=== PATIENT | male | born 1965 | race Caucasian/White ===

== ENCOUNTER 2022-03-22 14:52 | Emergency (ER) | payer MEDICAID ==
[~2022-03-22] VITALS: Ht 188 cm; Wt 109.0 kg
[~2022-03-22 14:52] MED LIST: CYCL-1 PO
[2022-03-22 15:25] VITALS: BP 119/67
[2022-03-22 17:41] LABS: EOSINOPHILS # (AUTO) 0.2 X10'3 (0-0.9)
[2022-03-22 17:43] LABS: BASOPHILS # (AUTO) 0.1 X10'3 (0-0.2); BASOPHILS % (AUTO) 1.1 % (0-1); HEMATOCRIT 43.1 % (42.0-52.0); HEMOGLOBIN 14.2 g/dl (14.0-17.9); LYMPHOCYTES % (AUTO) 19.1 % (21-51); MEAN CORPUSCULAR HEMOGLOBIN 29.5 PG (27.0-31.0); MEAN CORPUSCULAR HGB CONC 32.9 g/dL (33.0-36.5); MEAN CORPUSCULAR VOLUME 89.7 FL (78-98); MEAN PLATELET VOLUME 7.9 FL (7.4-10.4); MONOCYTES # (AUTO) 1.5 X10'3 (0-0.9); NEUTROPHILS # (AUTO) 6.8 X10'3 (1.8-7.7); NEUTROPHILS % (AUTO) 63.8 % (42-75); PLATELET COUNT 249 X10'3 (140-440); RED BLOOD COUNT 4.81 X10'6 (4.70-6.10); RED CELL DISTRIBUTION WIDTH 13.3 % (11.5-14.5); WHITE BLOOD COUNT 10.6 X10'3 (4.5-11.0)
[2022-03-22 17:55] LABS: ALANINE AMINOTRANSFERASE 34 U/L (12-78); ALBUMIN 3.4 G/DL (3.4-5.0); ALBUMIN/GLOBULIN RATIO 0.7 (1.1-1.5); ALKALINE PHOSPHATASE 75 IU/L (46-116); ANION GAP 7 (8-16); ASPARTATE AMINO TRANSFERASE 34 U/L (10-37); BILIRUBIN,TOTAL 0.6 MG/DL (0.1-1.0); BLOOD UREA NITROGEN 18 MG/DL (7-18); BUN/CREATININE RATIO 18.9 (5.4-32.0); C-REACTIVE PROTEIN 7.24 MG/DL (0.0-0.5); CALCIUM 9.3 MG/DL (8.5-10.1); CHLORIDE 99 MMOL/L (99-107); CREATININE 0.95 MG/DL (0.60-1.10); GLUCOSE 101 MG/DL (70-104); SODIUM 138 MMOL/L (135-145); TOTAL CARBON DIOXIDE 31.7 MMOL/L (24-32); TOTAL PROTEIN 8.1 G/DL (6.4-8.2); eGFR 81 ML/MIN
[2022-03-22] MEDS ORDERED: IBUP-1984 PO (18:44)
[2022-03-22] MEDS ORDERED: PRED10TA23 PO (18:44)
[2022-03-22] MEDS ORDERED: ketorolac tromethamine 15mg/ml inj. IM ONE (18:45)
[2022-03-22] MEDS ORDERED: HYDROcodone/acetaminophen 10/325mg tab PO ONE (18:45)
== END 2022-03-22 19:15 | disposition home or self-care (01) ==
LOC: ER 14:53
DX: M10.9 Gout, unspecified (principal); M25.562 Pain in left knee; Z98.890 Other specified postprocedural states; Z72.89 Other problems related to lifestyle; Z79.899 Other long term (current) drug therapy; Z88.0 Allergy status to penicillin
CPT/HCPCS: 36415; 73564; 80053; 83605; 84145; 85025; 85651; 86140; 87040; 96372; 99284; J1885

== ENCOUNTER 2024-03-15 10:35 | Inpatient (IN) | payer MEDICAID ==
[~2024-03-15] VITALS: Ht 177.8 cm; Wt 74.0 kg
[2024-03-15 12:06] LABS: BASOPHILS # (AUTO) 0.1 X10'3 (0-0.2); EOSINOPHILS % (AUTO) 0.2 % (0-6); LYMPHOCYTES # (AUTO) 0.7 X10'3 (1.1-4.8); MEAN CORPUSCULAR HGB CONC 31.9 g/dL (33.0-36.5)
[2024-03-15 12:08] LABS: BASOPHILS % (AUTO) 0.4 % (0-1); HEMATOCRIT 32.2 % (42.0-52.0); HEMOGLOBIN 10.3 g/dl (14.0-17.9); LYMPHOCYTES % (AUTO) 5.5 % (21-51); MEAN CORPUSCULAR HEMOGLOBIN 24.8 PG (27.0-31.0); MEAN CORPUSCULAR VOLUME 77.8 FL (78-98); MEAN PLATELET VOLUME 7.6 FL (7.4-10.4); MONOCYTES % (AUTO) 8.2 % (2-12); NEUTROPHILS # (AUTO) 10.6 X10'3 (1.8-7.7); NEUTROPHILS % (AUTO) 85.7 % (42-75); PLATELET COUNT 374 X10'3 (140-440); RED BLOOD COUNT 4.14 X10'6 (4.70-6.10); RED CELL DISTRIBUTION WIDTH 16.6 % (11.5-14.5); WHITE BLOOD COUNT 12.4 X10'3 (4.5-11.0)
[2024-03-15] MEDS: normal saline 1000ML IV soln IV ONE (12:08)
[2024-03-15 12:18] LABS: ALANINE AMINOTRANSFERASE 23 U/L (12-78); ALBUMIN 1.8 G/DL (3.4-5.0); ALBUMIN/GLOBULIN RATIO 0.3 (1.1-1.5); ALKALINE PHOSPHATASE 84 IU/L (46-116); ANION GAP 5 (8-16); ASPARTATE AMINO TRANSFERASE 36 U/L (10-37); BILIRUBIN,DIRECT 0.1 MG/DL (0-0.3); BILIRUBIN,TOTAL 0.2 MG/DL (0.1-1.0); BLOOD UREA NITROGEN 17 MG/DL (7-18); BUN/CREATININE RATIO 20.2 (10.0-20.0); CALCIUM 8.1 MG/DL (8.5-10.1); CHLORIDE 98 MMOL/L (99-107); CREATININE 0.84 MG/DL (0.60-1.10); GLUCOSE 153 MG/DL (70-104); POTASSIUM 3.7 MMOL/L (3.5-5.1); SODIUM 132 MMOL/L (135-145); TOTAL CARBON DIOXIDE 28.8 MMOL/L (24-32); eCRCL 95 ML/MIN; eGFR > 90 ML/MIN
[2024-03-15] MEDS ORDERED: CefTRIAXone 250MG inj IV STA (13:09)
[2024-03-15] MEDS: ondansetron/PF 4mg/2ml inj IV ONE (13:36)
[2024-03-15] MEDS: CefTRIAXone 2gm/D5W 50ml IV ONE (13:36)
[2024-03-15] MEDS: morphine 4 MG/ML inj SYRINge IV ONE (13:36)
[2024-03-15 13:58] LABS: C-REACTIVE PROTEIN 9.97 MG/DL (0.0-0.5)
[2024-03-15] MEDS ORDERED: magnesium sulf-water 4G/100mL 100 ML IV PRN (14:55)
[2024-03-15] MEDS ORDERED: vancomycin inj 1,000 MG in normal saline 250ml IV soln 250 ML IV ONE (14:55)
[2024-03-15] MEDS ORDERED: potassium Cl 20 mEq SR tablet PO PRN ×2 (14:55)
[2024-03-15] MEDS ORDERED: magnesium sulf-water 2g/50mL 50 ML IV PRN (14:55)
[2024-03-15] MEDS ORDERED: HYDROmorphone/PF 0.2 MG/ML SYRINGE IV PRN (14:55)
[2024-03-15] MEDS ORDERED: potassium Cl 40MEQ/1/2NS 520ml 520 ML IV PRN (14:55)
[2024-03-15] MEDS ORDERED: magnesium hydroxide 30ml (MOM) UD suspension PO PRN (14:55)
[2024-03-15] MEDS ORDERED: acetaminophen 325mg tablet PO PRN ×2 (14:55)
[2024-03-15] MEDS ORDERED: mag hydrox/Alum hydrox/simeth 30ml oral suspension PO PRN (14:55)
[2024-03-15] MEDS ORDERED: HYDROcodone/acetaminophen 5mg/325mg tablet PO PRN (14:55)
[2024-03-15] MEDS ORDERED: ondansetron/PF 4mg/2ml inj IV PRN (14:55)
[2024-03-15] MEDS: normal saline 1000ml 1,000 ML IV SCH (16:02)
[2024-03-15] MEDS: VANCOMYCIN 1GM 200ML H20 (PEG) 200 ML IV SCH (16:02)
[2024-03-15] MEDS ORDERED: METH-603 PO (17:58)
[2024-03-15] MEDS: docusate sod 100mg capsule PO SCH (20:00)
[2024-03-15] MEDS: K and/or MAG REPLACEMENT MC SCH (20:00)
[2024-03-15] MEDS: enoxaparin 40mg/0.4ml syringe SQ SCH (20:52)
[2024-03-15 23:20] VITALS: BP 105/49; PULSE 94; RESP 12; TEMP 100.6; O2SAT 97
[2024-03-16 01:50] LABS: BILIRUBIN,URINE NEGATIVE (Neg); CLARITY,URINE CLEAR (Clear); COLOR,URINE YELLOW (Yellow); GLUCOSE, URINE NEGATIVE (Neg); KETONES,URINE NEGATIVE (Neg); LEUKOCYTE ESTERASE ,URINE NEGATIVE (Neg); NITRITES, URINE NEGATIVE (Neg); OCCULT BLOOD,URINE NEGATIVE (Neg); PROTEIN,URINE TRACE mg/dl (Neg)
[2024-03-16 01:53] LABS: URINE AMPHETAMINE SCREEN POSITIVE (Neg); URINE BARBITUATE SCREEN NEGATIVE (Neg); URINE BENZODIAZEPINES SCREEN NEGATIVE (Neg); URINE CANNABINOID SCREEN NEGATIVE (Neg); URINE COCAINE SCREEN NEGATIVE (Neg); URINE METHADONE SCREEN POSITIVE (Neg); URINE OPIATE SCREEN POSITIVE (Neg); URINE PHENCYCLIDINE SCREEN NEGATIVE (Neg)
[2024-03-16 01:57] LABS: UA COLLECTION TYPE VOIDED
[2024-03-16 01:58] LABS: BACTERIA,URINE FEW /HPF (Neg); RBC,URINE NONE SEEN /HPF (0-2); SQUAMOUS EPITHELIAL CELL,UR FEW /LPF (FEW); WBC,URINE 0-4 /HPF (0-4); YEAST MODERATE /HPF (NEGATIVE)
[2024-03-16 02:07] VITALS: TEMP 98.8
[2024-03-16 06:30] VITALS: BP 111/58; PULSE 96; RESP 20; TEMP 98.4; O2SAT 92
[2024-03-16 07:19] LABS: BASOPHILS % (AUTO) 0.5 % (0-1); EOSINOPHILS # (AUTO) 0.1 X10'3 (0-0.9); EOSINOPHILS % (AUTO) 1.3 % (0-6); HEMATOCRIT 27.7 % (42.0-52.0); HEMOGLOBIN 8.8 g/dl (14.0-17.9); LYMPHOCYTES # (AUTO) 1.4 X10'3 (1.1-4.8); LYMPHOCYTES % (AUTO) 17.6 % (21-51); MEAN CORPUSCULAR HEMOGLOBIN 24.5 PG (27.0-31.0); MEAN CORPUSCULAR HGB CONC 31.9 g/dL (33.0-36.5); MEAN CORPUSCULAR VOLUME 76.7 FL (78-98); MEAN PLATELET VOLUME 6.9 FL (7.4-10.4); MONOCYTES # (AUTO) 0.8 X10'3 (0-0.9); MONOCYTES % (AUTO) 10.6 % (2-12); NEUTROPHILS # (AUTO) 5.6 X10'3 (1.8-7.7); PLATELET COUNT 374 X10'3 (140-440); RED BLOOD COUNT 3.61 X10'6 (4.70-6.10); RED CELL DISTRIBUTION WIDTH 16.4 % (11.5-14.5)
[2024-03-16 07:43] LABS: ALANINE AMINOTRANSFERASE 17 U/L (12-78); ALBUMIN 1.3 G/DL (3.4-5.0); ALBUMIN/GLOBULIN RATIO 0.3 (1.1-1.5); ALKALINE PHOSPHATASE 66 IU/L (46-116); ANION GAP 3 (8-16); ASPARTATE AMINO TRANSFERASE 39 U/L (10-37); BILIRUBIN,TOTAL 0.3 MG/DL (0.1-1.0); BLOOD UREA NITROGEN 12 MG/DL (7-18); BUN/CREATININE RATIO 16.9 (10.0-20.0); CALCIUM 7.6 MG/DL (8.5-10.1); CHLORIDE 102 MMOL/L (99-107); CREATININE 0.71 MG/DL (0.60-1.10); GLUCOSE 72 MG/DL (70-104); MAGNESIUM 1.7 MG/DL (1.5-2.4); POTASSIUM 3.8 MMOL/L (3.5-5.1); SODIUM 133 MMOL/L (135-145); TOTAL CARBON DIOXIDE 27.6 MMOL/L (24-32); TOTAL PROTEIN 5.6 G/DL (6.4-8.2); eCRCL 113 ML/MIN; eGFR > 90 ML/MIN
[2024-03-16 08:00] VITALS: RESP 20; O2SAT 92
[2024-03-16] MEDS ORDERED: HYDROmorphone inj. 0.5 MG/0.5 ML DISP.SYRIN IV PRN (08:46)
[2024-03-16 10:00] VITALS: BP 108/50; PULSE 102; RESP 17; TEMP 99.1; O2SAT 97
[2024-03-16] MEDS: methadone 10mg tablet PO ONE (12:17)
[2024-03-16] MEDS: methadone 10mg tablet PO SCH (12:22)
[2024-03-16] MEDS: CefTRIAXone/D5W-Rocephin 1gm 50 ML IV SCH (12:23)
[2024-03-16] MEDS: JUVEN Shake w/Arg/Glut/Ca2+Bmb (Juven 19.3gm) pkt 240ml PO SCH (12:54)
[2024-03-16] MEDS: HYDROmorphone inj. 0.5 MG/0.5 ML DISP.SYRIN IV PRN (13:28)
[2024-03-16] MEDS ORDERED: iohexol 350MG/ML 100ml bottle IV ONE (16:01)
[2024-03-16] MEDS ORDERED: iohexol 350 MG/ML 50ML vial IV ONE (16:01)
[2024-03-16 20:00] VITALS: RESP 13; O2SAT 99
[2024-03-16 22:00] VITALS: BP 146/72; PULSE 94; RESP 13; TEMP 98.2; O2SAT 99
[2024-03-17] MEDS: VANCOMYCIN LEVEL IV ONE (02:30)
[2024-03-17 04:13] LABS: BASOPHILS % (AUTO) 0.7 % (0-1); EOSINOPHILS # (AUTO) 0.1 X10'3 (0-0.9); EOSINOPHILS % (AUTO) 2.2 % (0-6); HEMATOCRIT 28.3 % (42.0-52.0); HEMOGLOBIN 9.1 g/dl (14.0-17.9); LYMPHOCYTES # (AUTO) 1.3 X10'3 (1.1-4.8); LYMPHOCYTES % (AUTO) 19.7 % (21-51); MEAN CORPUSCULAR HEMOGLOBIN 24.5 PG (27.0-31.0); MEAN CORPUSCULAR HGB CONC 32.2 g/dL (33.0-36.5); MEAN CORPUSCULAR VOLUME 76.2 FL (78-98); MEAN PLATELET VOLUME 6.7 FL (7.4-10.4); MONOCYTES # (AUTO) 0.7 X10'3 (0-0.9); MONOCYTES % (AUTO) 11.1 % (2-12); NEUTROPHILS # (AUTO) 4.3 X10'3 (1.8-7.7); NEUTROPHILS % (AUTO) 66.3 % (42-75); PLATELET COUNT 390 X10'3 (140-440); RED BLOOD COUNT 3.72 X10'6 (4.70-6.10); RED CELL DISTRIBUTION WIDTH 16.7 % (11.5-14.5); WHITE BLOOD COUNT 6.4 X10'3 (4.5-11.0)
[2024-03-17 04:31] LABS: ALANINE AMINOTRANSFERASE 20 U/L (12-78); ALBUMIN 1.5 G/DL (3.4-5.0); ALBUMIN/GLOBULIN RATIO 0.3 (1.1-1.5); ALKALINE PHOSPHATASE 85 IU/L (46-116); ANION GAP 5 (8-16); ASPARTATE AMINO TRANSFERASE 24 U/L (10-37); BILIRUBIN,TOTAL 0.2 MG/DL (0.1-1.0); BLOOD UREA NITROGEN 16 MG/DL (7-18); BUN/CREATININE RATIO 20.8 (10.0-20.0); CALCIUM 8.1 MG/DL (8.5-10.1); CHLORIDE 105 MMOL/L (99-107); CREATINE KINASE 95 U/L (39-308); CREATININE 0.77 MG/DL (0.60-1.10); GLUCOSE 98 MG/DL (70-104); MAGNESIUM 1.7 MG/DL (1.5-2.4); POTASSIUM 4.2 MMOL/L (3.5-5.1); SODIUM 138 MMOL/L (135-145); TOTAL CARBON DIOXIDE 27.8 MMOL/L (24-32); TOTAL PROTEIN 6.2 G/DL (6.4-8.2); VANCOMYCIN,TROUGH 19.1 ug/mL (10.0-20.0); eCRCL 104 ML/MIN; eGFR > 90 ML/MIN
[2024-03-17 04:42] LABS: HIV ANTIBODY 1&2 RAPID NON-REACTIVE (Neg)
[2024-03-17 07:29] VITALS: BP 123/68; PULSE 78; RESP 16; TEMP 98.4; O2SAT 95
[2024-03-17] MEDS: HYDROcodone/acetaminophen 10/325mg tab PO PRN (13:24)
[2024-03-17 14:53] VITALS: RESP 16; O2SAT 98
[2024-03-17 17:17] VITALS: RESP 16
[2024-03-17 18:00] VITALS: BP 99/56; PULSE 92; RESP 18; TEMP 98; O2SAT 95
[2024-03-17 20:00] VITALS: RESP 18; O2SAT 95
[2024-03-18 06:00] VITALS: BP 112/58; PULSE 92; RESP 18; TEMP 98.2; O2SAT 94
[2024-03-18 07:17] LABS: ALANINE AMINOTRANSFERASE 20 U/L (12-78); ALBUMIN 1.4 G/DL (3.4-5.0); ALBUMIN/GLOBULIN RATIO 0.3 (1.1-1.5); ALKALINE PHOSPHATASE 102 IU/L (46-116); ANION GAP 2 (8-16); ASPARTATE AMINO TRANSFERASE 30 U/L (10-37); BILIRUBIN,TOTAL 0.2 MG/DL (0.1-1.0); BLOOD UREA NITROGEN 16 MG/DL (7-18); BUN/CREATININE RATIO 21.1 (10.0-20.0); CHLORIDE 104 MMOL/L (99-107); CREATININE 0.76 MG/DL (0.60-1.10); GLUCOSE 90 MG/DL (70-104); MAGNESIUM 1.8 MG/DL (1.5-2.4); POTASSIUM 4.3 MMOL/L (3.5-5.1); SODIUM 137 MMOL/L (135-145); TOTAL CARBON DIOXIDE 30.9 MMOL/L (24-32); TOTAL PROTEIN 6.1 G/DL (6.4-8.2); eCRCL 105 ML/MIN; eGFR > 90 ML/MIN
[2024-03-18 07:19] LABS: BASOPHILS # (AUTO) 0.1 X10'3 (0-0.2); BASOPHILS % (AUTO) 0.9 % (0-1); EOSINOPHILS # (AUTO) 0.2 X10'3 (0-0.9); EOSINOPHILS % (AUTO) 2.4 % (0-6); HEMATOCRIT 28.7 % (42.0-52.0); HEMOGLOBIN 9.2 g/dl (14.0-17.9); LYMPHOCYTES # (AUTO) 1.2 X10'3 (1.1-4.8); LYMPHOCYTES % (AUTO) 18.1 % (21-51); MEAN CORPUSCULAR HEMOGLOBIN 24.6 PG (27.0-31.0); MEAN CORPUSCULAR VOLUME 76.9 FL (78-98); MONOCYTES # (AUTO) 0.6 X10'3 (0-0.9); MONOCYTES % (AUTO) 9.2 % (2-12); NEUTROPHILS # (AUTO) 4.6 X10'3 (1.8-7.7); NEUTROPHILS % (AUTO) 69.4 % (42-75); PLATELET COUNT 435 X10'3 (140-440); RED BLOOD COUNT 3.74 X10'6 (4.70-6.10); RED CELL DISTRIBUTION WIDTH 16.6 % (11.5-14.5); WHITE BLOOD COUNT 6.7 X10'3 (4.5-11.0)
[2024-03-18 08:23] VITALS: RESP 18; O2SAT 94
[2024-03-18 10:25] VITALS: RESP 18; O2SAT 94
[2024-03-18 10:50] VITALS: BP 114/59; PULSE 96; RESP 14; TEMP 98.6; O2SAT 94
[2024-03-18 18:30] VITALS: BP 115/59; PULSE 80; RESP 16; TEMP 98.7; O2SAT 98
[2024-03-18 22:00] VITALS: BP 123/65; PULSE 102; RESP 16; TEMP 98.9; O2SAT 96
[2024-03-19 06:00] VITALS: BP 116/63; PULSE 84; RESP 18; TEMP 98.5; O2SAT 97
[2024-03-19 07:28] LABS: BASOPHILS # (AUTO) 0.1 X10'3 (0-0.2); BASOPHILS % (AUTO) 1.2 % (0-1); EOSINOPHILS # (AUTO) 0.2 X10'3 (0-0.9); EOSINOPHILS % (AUTO) 3.3 % (0-6); HEMATOCRIT 28.5 % (42.0-52.0); HEMOGLOBIN 9.1 g/dl (14.0-17.9); LYMPHOCYTES # (AUTO) 1.5 X10'3 (1.1-4.8); MEAN CORPUSCULAR HEMOGLOBIN 24.5 PG (27.0-31.0); MEAN CORPUSCULAR VOLUME 76.5 FL (78-98); MEAN PLATELET VOLUME 7.2 FL (7.4-10.4); MONOCYTES # (AUTO) 0.6 X10'3 (0-0.9); MONOCYTES % (AUTO) 9.8 % (2-12); NEUTROPHILS # (AUTO) 4.1 X10'3 (1.8-7.7); NEUTROPHILS % (AUTO) 62.7 % (42-75); PLATELET COUNT 432 X10'3 (140-440); RED BLOOD COUNT 3.73 X10'6 (4.70-6.10); RED CELL DISTRIBUTION WIDTH 16.3 % (11.5-14.5); WHITE BLOOD COUNT 6.5 X10'3 (4.5-11.0)
[2024-03-19 07:56] LABS: ALANINE AMINOTRANSFERASE 17 U/L (12-78); ALBUMIN 1.4 G/DL (3.4-5.0); ALBUMIN/GLOBULIN RATIO 0.3 (1.1-1.5); ALKALINE PHOSPHATASE 114 IU/L (46-116); ANION GAP 5 (8-16); ASPARTATE AMINO TRANSFERASE 36 U/L (10-37); BILIRUBIN,TOTAL 0.2 MG/DL (0.1-1.0); BLOOD UREA NITROGEN 17 MG/DL (7-18); BUN/CREATININE RATIO 21.8 (10.0-20.0); CALCIUM 7.9 MG/DL (8.5-10.1); CHLORIDE 103 MMOL/L (99-107); CREATININE 0.78 MG/DL (0.60-1.10); GLUCOSE 98 MG/DL (70-104); MAGNESIUM 1.8 MG/DL (1.5-2.4); SODIUM 137 MMOL/L (135-145); TOTAL CARBON DIOXIDE 29.3 MMOL/L (24-32); TOTAL PROTEIN 6.2 G/DL (6.4-8.2); eCRCL 103 ML/MIN; eGFR > 90 ML/MIN
[2024-03-19 07:59] LABS: POTASSIUM 4.7 MMOL/L (3.5-5.1)
[2024-03-19 10:00] VITALS: BP 131/70; PULSE 80; RESP 18; TEMP 97.6; O2SAT 97
[2024-03-19 18:00] VITALS: BP 140/79; PULSE 83; RESP 14; TEMP 98.4; O2SAT 95
[2024-03-19 22:00] VITALS: BP 129/63; PULSE 90; RESP 16; TEMP 98.5; O2SAT 94
[2024-03-20 05:20] LABS: HBSAG SCREEN Negative (Negative); HEP A AB, IGM Negative (Negative); HEP B CORE AB, IGM Negative (Negative)
[2024-03-20 06:12] LABS: BASOPHILS # (AUTO) 0.1 X10'3 (0-0.2); BASOPHILS % (AUTO) 1.3 % (0-1); EOSINOPHILS # (AUTO) 0.2 X10'3 (0-0.9); EOSINOPHILS % (AUTO) 3.4 % (0-6); HEMATOCRIT 31.2 % (42.0-52.0); HEMOGLOBIN 9.9 g/dl (14.0-17.9); LYMPHOCYTES # (AUTO) 1.5 X10'3 (1.1-4.8); LYMPHOCYTES % (AUTO) 21.4 % (21-51); MEAN CORPUSCULAR HEMOGLOBIN 24.4 PG (27.0-31.0); MEAN CORPUSCULAR HGB CONC 31.6 g/dL (33.0-36.5); MEAN CORPUSCULAR VOLUME 77.2 FL (78-98); MONOCYTES # (AUTO) 0.6 X10'3 (0-0.9); MONOCYTES % (AUTO) 8.5 % (2-12); NEUTROPHILS # (AUTO) 4.6 X10'3 (1.8-7.7); NEUTROPHILS % (AUTO) 65.4 % (42-75); PLATELET COUNT 451 X10'3 (140-440); RED BLOOD COUNT 4.04 X10'6 (4.70-6.10); RED CELL DISTRIBUTION WIDTH 16.5 % (11.5-14.5); WHITE BLOOD COUNT 7.1 X10'3 (4.5-11.0)
[2024-03-20 06:35] LABS: ALANINE AMINOTRANSFERASE 20 U/L (12-78); ALBUMIN 1.5 G/DL (3.4-5.0); ALBUMIN/GLOBULIN RATIO 0.3 (1.1-1.5); ALKALINE PHOSPHATASE 118 IU/L (46-116); ANION GAP 2 (8-16); ASPARTATE AMINO TRANSFERASE 28 U/L (10-37); BILIRUBIN,TOTAL 0.1 MG/DL (0.1-1.0); BLOOD UREA NITROGEN 19 MG/DL (7-18); BUN/CREATININE RATIO 21.1 (10.0-20.0); CALCIUM 8.1 MG/DL (8.5-10.1); CHLORIDE 102 MMOL/L (99-107); GLUCOSE 99 MG/DL (70-104); MAGNESIUM 1.8 MG/DL (1.5-2.4); POTASSIUM 4.3 MMOL/L (3.5-5.1); SODIUM 137 MMOL/L (135-145); TOTAL CARBON DIOXIDE 32.7 MMOL/L (24-32); TOTAL PROTEIN 6.4 G/DL (6.4-8.2); eCRCL 89 ML/MIN; eGFR 86 ML/MIN
[2024-03-20 10:00] VITALS: BP 130/62; PULSE 79; RESP 18; TEMP 98.1; O2SAT 96
[2024-03-22 17:10] LABS: HEPATITIS C VIRUS ANTIBODY Reactive (Non Reactive)
== END 2024-03-20 18:11 | DRG 383 ==
LOC: ER 10:35 → ED HOLD 15:00 → EDBEDREQ 22:18 → ORTHO 4S 22:51
PROVIDERS: ADMIT Family Medicine; ATTEND Family Medicine
PROC: B4201ZZ Computerized Tomography (CT Scan) of Abdominal Aorta using Low Osmolar Contrast (ICD-10-PCS; principal; 2024-03-16)
PROC: B42H1ZZ Computerized Tomography (CT Scan) of Bilateral Lower Extremity Arteries using Low Osmolar Contrast (ICD-10-PCS; 2024-03-16)
PROC: B42H1ZZ Computerized Tomography (CT Scan) of Bilateral Lower Extremity Arteries using Low Osmolar Contrast (ICD-10-PCS; 2024-03-16)
DX: L03.116 Cellulitis of left lower limb (principal); E43 Unspecified severe protein-calorie malnutrition; M86.8X6 Other osteomyelitis, lower leg; E87.1 Hypo-osmolality and hyponatremia; S81.802A Unspecified open wound, left lower leg, initial encounter; S81.801A Unspecified open wound, right lower leg, initial encounter; F10.20 Alcohol dependence, uncomplicated; F11.20 Opioid dependence, uncomplicated; L02.413 Cutaneous abscess of right upper limb; D50.9 Iron deficiency anemia, unspecified; L03.113 Cellulitis of right upper limb; L03.114 Cellulitis of left upper limb; L02.414 Cutaneous abscess of left upper limb; X58.XXXA Exposure to other specified factors, initial encounter; L03.115 Cellulitis of right lower limb; Z59.00 Homelessness unspecified; Z88.0 Allergy status to penicillin; Z87.891 Personal history of nicotine dependence; Z88.1 Allergy status to other antibiotic agents; Y93.89 Activity, other specified; Y92.89 Other specified places as the place of occurrence of the external cause; Y99.8 Other external cause status
CPT/HCPCS: 36415; 71045; 73200; 73590; 73723; 75635; 76942; 80048; 80053; 80074; 80076; 80202; 80305; 81001; 82550; 83605; 83735; 84110; 84145; 85025; 85651; 86140; 86703; 87040; 87070; 87075; 87077; 87081; 87102; 87186; 93005; 93925; 96374; 99285; A6223; A6253; A6258; A6260; A6446; A6449; C1751; C1758; G0378; J0696; J1171; J1650; J2270; J2405; J3372; J7030; J7040; Q9967

== ENCOUNTER 2024-06-10 13:30 | Emergency (ER) | payer MEDICAID ==
[~2024-06-10] VITALS: Ht 188 cm; Wt 84.1 kg
[~2024-06-10 13:30] MED LIST changes: -CYCL-1 PO; +METH-603 PO
[2024-06-10] MEDS ORDERED: CIPR-202 PO (15:14)
[2024-06-10 15:21] LABS: ALBUMIN 2.4 G/DL (3.4-5.0); ANION GAP 8 (8-16); BLOOD UREA NITROGEN 18 MG/DL (7-18); BUN/CREATININE RATIO 20.2 (10.0-20.0); CALCIUM 8.8 MG/DL (8.5-10.1); CHLORIDE 100 MMOL/L (99-107); CREATININE 0.89 MG/DL (0.60-1.10); GLUCOSE 109 MG/DL (70-104); POTASSIUM 4.4 MMOL/L (3.5-5.1); SODIUM 135 MMOL/L (135-145); TOTAL CARBON DIOXIDE 26.6 MMOL/L (24-32); eCRCL 101 ML/MIN; eGFR 87 ML/MIN
[2024-06-10 16:36] LABS: EOSINOPHILS # (AUTO) 0.1 X10'3 (0-0.9); EOSINOPHILS % (AUTO) 1.3 % (0-6); HEMOGLOBIN 12.1 g/dl (14.0-17.9); LYMPHOCYTES # (AUTO) 0.9 X10'3 (1.1-4.8); LYMPHOCYTES % (AUTO) 21.8 % (21-51); MEAN CORPUSCULAR HEMOGLOBIN 26.3 PG (27.0-31.0); MEAN CORPUSCULAR HGB CONC 32.7 g/dL (33.0-36.5); MEAN CORPUSCULAR VOLUME 80.3 FL (78-98); MEAN PLATELET VOLUME 7.2 FL (7.4-10.4); MONOCYTES # (AUTO) 0.9 X10'3 (0-0.9); MONOCYTES % (AUTO) 20.7 % (2-12); NEUTROPHILS # (AUTO) 2.4 X10'3 (1.8-7.7); NEUTROPHILS % (AUTO) 55.2 % (42-75); PLATELET COUNT 330 X10'3 (140-440); RED BLOOD COUNT 4.61 X10'6 (4.70-6.10); RED CELL DISTRIBUTION WIDTH 16.9 % (11.5-14.5); WHITE BLOOD COUNT 4.3 X10'3 (4.5-11.0)
[2024-06-10 17:42] VITALS: BP 130/68; PULSE 79; RESP 16; TEMP 99.4; O2SAT 98
== END 2024-06-10 17:44 | disposition left against medical advice (07) ==
LOC: ER 13:31
DX: S80.922A Unspecified superficial injury of left lower leg, initial encounter (principal); S80.921A Unspecified superficial injury of right lower leg, initial encounter; L03.116 Cellulitis of left lower limb; L03.115 Cellulitis of right lower limb; F10.90 Alcohol use, unspecified, uncomplicated; Z88.0 Allergy status to penicillin; Z98.890 Other specified postprocedural states; Y90.9 Presence of alcohol in blood, level not specified; X58.XXXA Exposure to other specified factors, initial encounter; Y93.89 Activity, other specified; Y92.89 Other specified places as the place of occurrence of the external cause; Y99.8 Other external cause status
CPT/HCPCS: 80048; 83605; 84145; 85025; 87040; 99283; A6213; A6253; A6258

== ENCOUNTER 2025-01-22 15:23 | Inpatient (IN) | payer MEDICAID ==
[~2025-01-22] VITALS: Ht 190.5 cm; Wt 78.0 kg
--- NOTE | 2025-01-22 15:53 | Physician Documentation ---
History of Present Illness ~ Chief Complaint: Heat Related Stated Complaint: HYPOTHERMIA Time Seen by MD: 15:41 Primary Medical Doctor: [facility] HPI 59-year-old male, history of lower extremity wounds, methamphetamine use, who presents with leg pain and a fever He tells me that he has chronic wounds on his legs. He was recently hospitalized for antibiotic treatment. He tells me that his wounds are really bad, painful, and he thinks they are infected. He reports feeling generally unwell, reports fevers and general malaise. Per EMS, he was lying outside, admitted to using methamphetamines, and did have a fever of 104. He does admit to methamphetamine use. He denies any other specific infectious symptoms Tetanus witin 5 years: No (UNK) Medication Reconciliation Allergies: Coded Allergies: Penicillins (Unverified Allergy, Unknown, 03/22/22) Scheduled Methadone Hcl* (Dolophine*), 70 MG PO DAILY, (Reported) Past Medical History Past Medical History: No Pertinent History Past Surgical History: orthopedic surgeries Patient History: Patient reports no known family medical history. Alcohol Use: Sober Drug Use: other Lives with: S/O Lives In: Home Review of Systems Constitutional: Reports: fever Musculoskeletal: Reports: pain, swelling Integumentary: Reports: wound(s) Physical Exam Vital Signs: Temperature: 101.5, Source: Oral, Heart Rate: 131, Respiratory Rate: 20, BP: 111/51, Pulse Oximetry: 94, Weight: 78.000 Oxygen Flow Rate: 0 Physical Exam General: This is an ill-appearing middle-aged man HEENT: Atraumatic, oropharynx appears dry Heart: Tachycardic, appears regular, heart rate in the 130s Lungs: normal work of breathing, he is in full sentences, normal oxygen saturation on room air Extremities: Bilateral lower extremities have chronic appearing wounds with significant beefy red erythema surrounding them, significant edema, weeping drainage from the wounds, the pants and socks are stuck to the skin Neuro: Alert and oriented Psychiatric: Anxious, appears uncomfortable Progress Results/Orders Results/Orders Orders - DARCY OSHEA MD Culture Blood (01/22/25 15:52) Vancomycin/H2o 1.75g/350ml Pb (Vancomyci (01/22/25 16:00) Page Hospitalist (01/22/25 17:18) Completed Orders - DARCY OSHEA MD Acetaminophen 325mg Tablet (Tylenol Tabl (01/22/25 15:40) Cbc/Diff (01/22/25 15:52) CMP (01/22/25 15:52) LA (01/22/25 15:52) Normal Saline 1000ml (0.9% Sodium Chlori (01/22/25 15:55) Morphine 4mg/Ml Inj. (Morphine Inj.) (01/22/25 15:55) Ondansetron Inj. (Zofran 4mg/2ml Vial) (01/22/25 15:55) Vancomycin*Pharmacy To Dose* (Vancomycin (01/22/25 15:55) Ceftriaxone 2gm/D5w 50ml Bag (Rocephin 2 (01/22/25 15:55) Medications Received in ER Medications (Trade) Dose Ordered Sig/Robert Route PRN Reason Start Time Stop Time Status Last Admin Dose Admin (Tylenol tablet) 650 mg ONCE ONCE PO 01/22/25 15:40 01/22/25 15:42 DC 01/22/25 15:45 650 MG Sodium Chloride 1,000 ml @ 1,000 mls/hr ONCE ONCE IV 01/22/25 15:55 01/22/25 16:54 DC 01/22/25 16:19 1,000 MLS/HR (morphine inj.) 4 mg ONCE ONCE IV 01/22/25 15:55 01/22/25 15:56 DC 01/22/25 16:20 4 MG (Zofran 4mg/2ml vial) 4 mg ONCE ONCE IV 01/22/25 15:55 01/22/25 15:56 DC 01/22/25 16:19 4 MG Ceftriaxone Sodium/Dextrose 50 ml @ 100 mls/hr ONCE ONCE IV 01/22/25 15:55 01/22/25 16:24 DC 01/22/25 16:19 100 MLS/HR Vancomycin HCl 350 ml @ 117 mls/hr ONCE ONCE IV 01/22/25 16:00 01/22/25 18:59 01/22/25 17:12 117 MLS/HR Vital Signs 01/22/25 01/22/25 01/22/25 15:25 16:20 16:34 Temp 101.5 Pulse 131 105 Resp 20 16 20 B/P (MAP) 111/51 119/58 (78) Pulse Ox 94 94 O2 Flow Rate 0 Laboratory Tests Test 01/22/25 16:17 White Blood Count 8.2 Red Blood Count 4.38 L Hemoglobin 11.3 L Hematocrit 34.7 L Mean Corpuscular Volume 79.2 Mean Corpuscular Hemoglobin 25.8 L Mean Corpuscular Hemoglobin Concent 32.6 L Red Cell Distribution Width 15.6 H Platelet Count 339 Mean Platelet Volume 7.5 Neutrophils (%) (Auto) 90.6 H Lymphocytes (%) (Auto) 4.9 L Monocytes (%) (Auto) 3.8 Eosinophils (%) (Auto) 0.1 Basophils (%) (Auto) 0.6 Neutrophils # (Auto) 7.4 Lymphocytes # (Auto) 0.4 L Monocytes # (Auto) 0.3 Eosinophils # (Auto) 0.0 Basophils # (Auto) 0.1 CBC Comment Sodium Level 131 L Potassium Level 3.8 Chloride Level 97 L Carbon Dioxide Level 27.7 Anion Gap 6 L Blood Urea Nitrogen 11 Creatinine 0.75 Estimated GFR/1.73 m2 > 90 BUN/Creatinine Ratio 14.7 Glucose Level 87 Lactic Acid Level 0.6 Calcium Level 8.7 Total Bilirubin 0.7 Aspartate Amino Transf (AST/SGOT) 21 Alanine Aminotransferase (ALT/SGPT) 13 Alkaline Phosphatase 84 Total Protein 7.6 Albumin 2.7 L Globulin 4.9 H Albumin/Globulin Ratio 0.6 L Chemistry Comments Consults/PCP Consults/PCP : Additional Comment Consult: I spoke to the internal medicine service, for admission in the hospital Medical Decision Making Additional Comment The patient presents with a fever and tachycardia. On exam he has findings concerning for significant leg infections and possible sepsis. He also did use methamphetamines which could cause his rapid heart rate. Blood cultures were obtained and he was given IV fluids, broad-spectrum IV antibiotics, and pain and nausea medicine. Labs do not show significant leukocytosis. Lactate is normal. He will be admitted to the medicine service for further treatment. Departure Impression: Primary Impression: Bilateral lower leg cellulitis Additional Impression: Sepsis Referrals: NO PRIMARY CARE PROVIDER (PCP) Signature Scribe Signature: na Attestation: DARCY Lacey MD Jan 22, 2025 15:53
[2025-01-22] MEDS: ondansetron/PF 4mg/2ml inj IV ONE (16:19)
[2025-01-22] MEDS: CefTRIAXone 2gm/D5W 50ml BAG 50 ML IV ONE (16:19)
[2025-01-22] MEDS: normal saline 1000ml 1,000 ML IV ONE (16:19)
[2025-01-22] MEDS: morphine 4 MG/ML inj SYRINge IV ONE (16:20)
[2025-01-22 16:49] LABS: MEAN PLATELET VOLUME 7.5 FL (7.4-10.4); RED CELL DISTRIBUTION WIDTH 15.6 % (11.5-14.5)
[2025-01-22 17:03] LABS: CREATININE 0.75 MG/DL (0.60-1.10); TOTAL CARBON DIOXIDE 27.7 MMOL/L (24-32); eCRCL 114 ML/MIN; eGFR > 90 ML/MIN
[2025-01-22] MEDS: VANCOMYCIN 1.75GM/WATER FOR INJ (PEG) 350 ML IVPB IV ONE (17:12)
[2025-01-22] MEDS ORDERED: bisacodyl 10mg suppository rectal RC PRN (17:30)
[2025-01-22] MEDS ORDERED: magnesium sulf-water 4G/100mL 100 ML IV PRN (17:30)
[2025-01-22] MEDS ORDERED: magnesium sulf-water 2g/50mL 50 ML IV PRN (17:30)
[2025-01-22] MEDS ORDERED: magnesium Cl slow-release 64mg tablet PO PRN (17:30)
[2025-01-22] MEDS ORDERED: magnesium hydroxide 30ml (MOM) UD suspension PO PRN (17:30)
[2025-01-22] MEDS ORDERED: morphine 4 MG/ML inj SYRINge IV PRN ×2 (17:30)
[2025-01-22] MEDS ORDERED: ondansetron/PF 4mg/2ml inj IV PRN (17:30)
[2025-01-22] MEDS ORDERED: potassium Cl 40MEQ/1/2NS 520ml 520 ML IV PRN (17:30)
[2025-01-22] MEDS ORDERED: potassium Cl 20 mEq SR tablet PO PRN ×2 (17:30)
[2025-01-22] MEDS ORDERED: HYDROcodone/acetaminophen 5mg/325mg tablet PO PRN (17:30)
[2025-01-22] MEDS: normal saline 1000ml 1,000 ML IV SCH (18:09)
[2025-01-22] MEDS: nicotine 14mg patch - 24hr TD SCH (18:10)
[2025-01-22 18:30] LABS: LEUKOCYTE ESTERASE ,URINE NEGATIVE (Neg); NITRITES, URINE NEGATIVE (Neg); OCCULT BLOOD,URINE NEGATIVE (Neg)
[2025-01-22 18:37] LABS: UA COLLECTION TYPE NON-SPECIFIED
[2025-01-22 18:50] LABS: URINE AMPHETAMINE SCREEN POSITIVE (Neg); URINE BARBITUATE SCREEN NEGATIVE (Neg); URINE BENZODIAZEPINES SCREEN NEGATIVE (Neg); URINE CANNABINOID SCREEN POSITIVE (Neg); URINE COCAINE SCREEN NEGATIVE (Neg); URINE METHADONE SCREEN NEGATIVE (Neg); URINE OPIATE SCREEN NEGATIVE (Neg); URINE PHENCYCLIDINE SCREEN NEGATIVE (Neg)
--- NOTE | 2025-01-22 19:39 | HISTORY AND PHYSICAL ---
History & Physical Providers to CC ~ History of Present Illness Reason for Admit\Complaint: Worsening of lower extremity wound History of Present Illness This is a 59-year-old male who was brought to the ED by ambulance the patient was significant bilateral lower extremity wounds. Patient is currently homeless. He was admitted in March 2024 and full workup was done he was discharged to [facility] on 03/20/2024. Patient is able to ambulate and he came to ER with his concern that his responds are painful and looking bad and he thinks it is infected..Per EMS, he was lying outside, admitted to using methamphetamines, and did have a fever of 104. Hospitalist services contacted for admission and further management for fever, bilateral lower extremity wound. When I evaluated the patient patient was half sleepy but cooperated during physical exam. Allergies: Coded Allergies: Penicillins (Unverified Allergy, Unknown, 03/22/22) Home Medications Home Medications Active Reported Dolophine* (Methadone HCl) 10 Mg Tablet 70 Mg PO DAILY Past Medical History Past Medical History Severe bilateral lower extremity wounds/ bilateral osteomyelitis, bilateral hand cellulitis, microcytic anemia, hyponatremia, severe protein calorie malnutrition . chronic history of heroin addiction and is on methadone Past Surgical History Surgical History Comment None documented Family History Family History: Patient reports no known family medical history. Past Social History Social History Comment Previously smoked cigarettes, history of alcoholism, history of methamphetamine use/ smokes meth. The patient has been homeless since April 27 2023 ROS ROS Except for positives in the HPI the rest of the 14 point review systems is negative Exam Vitals: Vital Signs Date Time Temp Pulse Resp B/P (MAP) Pulse Ox O2 Delivery O2 Flow Rate FiO2 01/22/25 16:34 105 20 119/58 (78) 94 01/22/25 16:00 0 01/22/25 15:25 101.5 General: General-patient not in any acute distress, alert awake oriented, chronically ill-appearing, appeared mildly lethargic HEENT-atraumatic normocephalic, neck supple without elevated JVD, no thyromegaly or carotid bruit. No lymphadenopathy bilaterally. Eyes-no icterus or pallor seen in eyes Chest-clear to auscultation bilaterally, breathing nonlabored no tachypnea, no wheezing, no crepitation, no crackles. Heart-S1-S2 normal, regular heart rate no murmur Abdomen bowel sounds positive on auscultation, soft nondistended nontender no guarding, no rigidity Skin/ Extremity- able to move all 4 extremities, chronic open wound present over both lower extremity. Left lower extremity open wound surface appeared necrotic. Neurology-grossly intact, nonfocal , cooperated during physical exam Psychiatry - patient is not confused or agitated cooperated during physical examination Diagnostic Data Last Recorded Lab Results: 01/22/25 1617 01/22/25 1617 Additional Plan # severe bilateral lower extremity wounds - wound care consult ordered. Started on IV vancomycin and IV Rocephin-I ordered VL venous USG , arterial ultrasounds of the lower extremities bilaterally and KALEN's. MRI of the lower extremities are ordered # bilateral hand cellulitis- we will continue with IV antibiotics wound care consult ordered # microcytic anemia daily CBC is ordered # hyponatremia , chronic most likely monitor daily CMP # DVT prophylaxis SQ Lovenox Patient's current condition is guarded we will continue to follow patient in a.m.. We will continue to monitor patient's labs and vitals closely . Needs physical therapy evaluation before discharge . Code status discussed with the patient patient wishes full code, Time spent in discussing code status 16 minutes. We will do home medication reconciliation once updated in electronic by nursing staff or pharmacist. Further management depending on response to treatment . I will continue to follow patient in a.m. Date of Service: Jan 22, 2025 Billing Provider: NICOLLE BYRNE MD Common Visit Codes: [id number] INP/OBS CARE (HIGH) Secondary Visit Codes: [id number] CARE PLAN 30 MINUTES NICOLLE BYRNE MD Jan 22, 2025 19:39
[2025-01-22] MEDS: heparin, porcine 5000 units/ml vial SQ SCH (20:00)
[2025-01-22 20:41] LABS: OSMOLALITY UA 314 MOSM/K (50-1400)
[2025-01-22] MEDS ORDERED: NO HOME MEDS (20:59)
[2025-01-22 21:01] LABS: OSMOLALITY 284.0 MOSM/K (280-300)
[2025-01-22 21:50] VITALS: BP 118/61; PULSE 87; RESP 16; TEMP 100.4; O2SAT 95
[2025-01-22 22:30] VITALS: RESP 16
[2025-01-23] MEDS: HYDROcodone/acetaminophen 10/325mg tab PO PRN (04:12)
[2025-01-23 04:38] LABS: MEAN PLATELET VOLUME 7.4 FL (7.4-10.4); RED CELL DISTRIBUTION WIDTH 15.5 % (11.5-14.5)
[2025-01-23 04:54] LABS: CREATININE 0.63 MG/DL (0.60-1.10); TOTAL CARBON DIOXIDE 23.6 MMOL/L (24-32); eCRCL 136 ML/MIN; eGFR > 90 ML/MIN
[2025-01-23] MEDS: VANCOmycin 1250MG/NS 250ml Bag 250 ML IV SCH (05:26)
[2025-01-23 06:00] VITALS: BP 109/46; PULSE 107; RESP 20; TEMP 99.9; O2SAT 97
[2025-01-23 07:27] VITALS: RESP 20; O2SAT 97
[2025-01-23] MEDS: CefTRIAXone 2gm/D5W 50ml BAG 50 ML IV SCH (09:10)
[2025-01-23 09:20] VITALS: BP 118/68; PULSE 84; RESP 14; TEMP 98.3; O2SAT 97
--- NOTE | 2025-01-23 11:28 | VASCULAR REPORT ---
BILATERAL Lower Extremity Arterial Duplex Date: 01/23/2025 07:30 AM Clinical History: Non-healing wounds on the lower extremities bilaterally Comparison: CT CTA ABDOMEN LOWER EXTR RUNOFF on DOS: 03/16/24, MR MRI LOWER EXTREMITY LEFT on DOS: 03/16/24, MR MRI LOWER EXTREMITY RIGHT on DOS: 03/16/24, VASC VL ARTERIAL on DOS: 03/16/24 Technique: Duplex Doppler evaluation including color Doppler and spectral/pulsed waveform analysis of the lower extremity arteries was performed. InaRSitions Non-healing wounds on the lower extremities bilaterally VELOCITY AND DOPPLER WAVEFORM ANALYSIS RIGHT cm/se Waveform Severity LEFT cm/se c c dCFA 143.0 Multiphasic dCFA 140.4 Multiphasic Prof Fem 114.6 Multiphasic Prof Fem 88.6 Multiphasic Art. Art Fem Art 143.9 Multiphasic Fem Art 119.7 Multiphasic Prox. Prox. Fem Art 126.0 Multiphasic Fem Art 103.2 Multiphasic Mid Mid. Fem Art 118.5 Multiphasic Fem Art 101.5 Multiphasic Dist. Dist. Pop Art(AK) 140.3 Multiphasic Pop Art(AK) 116.8 Multiphasic Pop Art(BK) 112.2 Multiphasic Pop Art(BK) 103.2 Multiphasic PALEOLOGY TEACHER Dist. 98.7 Multiphasic PALEOLOGY TEACHER Dist. 71.1 Multiphasic DPA 90.4 Multiphasic DPA 72.4 Multiphasic CONCLUSION Technologist Preliminary Impression: Brent Mayorga BS, RVT No significant stenosis or occlusion noted within the lower extremities bilaterally. Multiphasic waveforms noted throughout the lower extremities bilaterally.
[2025-01-23 18:00] VITALS: BP 122/70; PULSE 80; RESP 14; TEMP 97.4; O2SAT 100
--- NOTE | 2025-01-23 18:03 | VASCULAR REPORT ---
Technique: Real-time ultrasound imaging, with color Doppler and compression of the bilateral common femoral vein, femoral vein, greater saphenous vein, and popliteal vein. Indication: Edema Comparison: None Findings: Technically limited examination due to dressings. Within limitations: There is normal compressibility and flow augmentation in all of the imaged deep veins. There are no filling defects. Enlarged right inguinal lymph node measuring 3.9 x 1.8 cm. Enlarged left inguinal lymph node measuring 2.8 x 1.3 cm. Left Sáncehz's cyst measuring 1.1 x 0.8 cm. The left small saphenous vein contains echogenic thrombus. Impression: Technically limited examination due to the overlying dressings No evidence of DVT in the bilateral lower extremities within the evaluated veins. Superficial vein thrombus within the left small saphenous vein . Correlate for thrombophlebitis. Bilateral inguinal lymphadenopathy, right worse than left. Left popliteal fossa Sánchez's cyst.
[2025-01-23 20:00] VITALS: RESP 14; O2SAT 100
--- NOTE | 2025-01-23 20:10 | PROGRESS NOTE ---
Daily Progress Note Providers to CC ~ Antibiotic Timeout Antibiotic Ordered?: Yes Subjective Patient was seen in presence of nursing staff barely able to open his eyes. Wants to leave against medical advice. Workup and diagnostic testing pending. Objective Vital Signs Date Time Temp Pulse Resp B/P (MAP) Pulse Ox O2 Delivery O2 Flow Rate FiO2 01/23/25 09:20 98.3 84 14 118/68 (85) 97 Room Air 01/23/25 07:27 0.0 Result Diagram: 01/23/2540501/23/25405 General-patient not in any acute distress, alert awake oriented, chronically ill-appearing, appeared mildly lethargic HEENT-atraumatic normocephalic, neck supple without elevated JVD, no thyromegaly or carotid bruit. No lymphadenopathy bilaterally. Eyes-no icterus or pallor seen in eyes Chest-clear to auscultation bilaterally, breathing nonlabored no tachypnea, no wheezing, no crepitation, no crackles. Heart-S1-S2 normal, regular heart rate no murmur Abdomen bowel sounds positive on auscultation, soft nondistended nontender no guarding, no rigidity Skin/ Extremity- able to move all 4 extremities, chronic open wound present over both lower extremity. Left lower extremity open wound surface appeared necrotic. Neurology-grossly intact, nonfocal , cooperated during physical exam Psychiatry - patient is not confused or agitated cooperated during physical examination Problem\Assessment\Plan # severe bilateral lower extremity wounds - wound care consult ordered. Started on IV vancomycin and IV Rocephin-I ordered VL venous USG , arterial ultrasounds of the lower extremities bilaterally and KALEN's. MRI of the lower extremities are ordered # bilateral hand cellulitis- we will continue with IV antibiotics wound care consult ordered # microcytic anemia daily CBC is ordered # hyponatremia , chronic most likely monitor daily CMP # DVT prophylaxis SQ Lovenox Patient's current condition is guarded we will continue to follow patient in a.m.. Date of Service: Jan 23, 2025 Billing Provider: NICOLLE BYRNE MD Common Visit Codes: [id number] INP/OBS CARE(HIGH) NICOLLE BYRNE MD Jan 23, 2025 20:10
[2025-01-24] MEDS: VANCOMYCIN LEVEL IV ONE (04:30)
[2025-01-24 06:00] VITALS: BP 109/58; PULSE 66; RESP 24; TEMP 98.2; O2SAT 97
[2025-01-24 06:11] VITALS: BP 109/58; PULSE 66; RESP 24; TEMP 98.2; O2SAT 97
[2025-01-24 07:30] VITALS: RESP 16; O2SAT 97
[2025-01-24 07:55] LABS: MEAN PLATELET VOLUME 7.8 FL (7.4-10.4); RED CELL DISTRIBUTION WIDTH 15.8 % (11.5-14.5)
[2025-01-24 08:08] LABS: CREATININE 0.57 MG/DL (0.60-1.10); TOTAL CARBON DIOXIDE 25.2 MMOL/L (24-32); eCRCL 150 ML/MIN; eGFR > 90 ML/MIN
[2025-01-24] MEDS ORDERED: VANCOMYCIN/WATER FOR INJ (PEG) 1.5GM/300 ML IVPB IV SCH (17:00)
--- NOTE | 2025-01-24 18:03 | DISCHARGE SUMMARY ---
Discharge Summary Providers to CC ~ Discharge Summary Admission Diagnosis: Wound wounds bilaterally , history of osteomyelitis, meth use , fever Hospital Course DATE OF ADMISSION: January 22, 2025 DATE OF DISCHARGE: January 24, 2025 PATIENT LEFT AGAINST MEDICAL ADVICE Discharge Diagnosis\\Comment: severe bilateral lower extremity wounds, bilateral hand cellulitis, microcytic anemia , METH USE Operations\\Procedures: None Consultants: None Complications: None Condition on DC: Stable Discharge Summary: As per my admitting history and physical exam" This is a 59-year-old male who was brought to the ED by ambulance the patient was significant bilateral lower extremity wounds. Patient is currently homeless. He was admitted in March 2024 and full workup was done he was discharged to [facility] on 03/20/2024. Patient is able to ambulate and he came to ER with his concern that his responds are painful and looking bad and he thinks it is infected..Per EMS, he was lying outside, admitted to using methamphetamines, and did have a fever of 104. spitalist services contacted for admission and further management for fever, bilateral lower extremity wound. When I evaluated the patient patient was half sleepy but cooperated during physical exam." During hospitalization patient was treated # severe bilateral lower extremity wounds - wound care consult ordered. Started on IV vancomycin and IV Rocephin-I ordered VL venous USG , arterial ultrasounds of the lower extremities bilaterally and KALEN's. MRI of the lower extremities are ordered # bilateral hand cellulitis- we will continue with IV antibiotics wound care consult ordered # microcytic anemia daily CBC is ordered # hyponatremia , chronic most likely monitor daily CMP # urine drug screen positive for meth and cannabinoids and fentanyl # DVT prophylaxis SQ Lovenox Patient s clinical condition improved. Patient is seen and examined on the day of discharge. Patient decided to go against medical advice. *Problems/Diagnosis: (1) Bilateral lower leg cellulitis Status: Acute Total Time Spent on D/C: Up to 30 Minutes Date of Service: Jan 24, 2025 Billing Provider: NICOLLE BYRNE MD Common Visit Codes: [id number] DISCH DAY <30MIN NICOLLE BYRNE MD Jan 24, 2025 18:03
[2025-01-26] MEDS ORDERED: VANCOMYCIN LEVEL IV ONE (04:30)
== END 2025-01-24 09:36 | disposition left against medical advice (07) | DRG 720 ==
LOC: ER 15:23 → ED HOLD 17:34 → SUR 3N 21:45
PROVIDERS: ADMIT Internal Medicine; ATTEND Internal Medicine
DX: A41.9 Sepsis, unspecified organism (principal); E87.1 Hypo-osmolality and hyponatremia; S81.801A Unspecified open wound, right lower leg, initial encounter; L03.115 Cellulitis of right lower limb; D50.9 Iron deficiency anemia, unspecified; F10.20 Alcohol dependence, uncomplicated; Z59.00 Homelessness unspecified; L03.114 Cellulitis of left upper limb; L03.113 Cellulitis of right upper limb; F15.90 Other stimulant use, unspecified, uncomplicated; L03.116 Cellulitis of left lower limb; S81.802A Unspecified open wound, left lower leg, initial encounter; X58.XXXA Exposure to other specified factors, initial encounter; Y93.89 Activity, other specified; Y92.89 Other specified places as the place of occurrence of the external cause; Y99.8 Other external cause status; Z88.0 Allergy status to penicillin; Z87.891 Personal history of nicotine dependence
CPT/HCPCS: 36415; 80053; 80202; 80305; 81003; 83605; 83930; 83935; 84145; 84300; 84550; 85025; 85651; 87040; 87081; 93925; 93970; 96365; 96375; 99285; A6223; A6258; A6446; G0378; J0696; J1644; J2270; J2405; J3374; J3375; J7030

== ENCOUNTER 2025-02-12 18:20 | Inpatient (IN) | payer MEDICAID ==
[~2025-02-12] VITALS: Ht 190.5 cm; Wt 81.8 kg
[~2025-02-12 18:20] MED LIST changes: -METH-603 PO; +NO HOME MEDS
[2025-02-12] MEDS: haloperidol lactate 5mg/ml inj IM ONE ×2 (20:38→23:33)
--- NOTE | 2025-02-12 20:42 | RADIOLOGY REPORT ---
CHEST RADIOGRAPH Indication: sepsis r/o Technique: 2 view Comparison: DI CHEST,SINGLE VIEW on DOS: 03/15/24 FINDINGS: Assessment is limited by decubitus positioning. Lines and Tubes: None. Lungs/Pleura: No obvious consolidation, pleural effusion or pneumothorax. Cardiomediastinum: Unremarkable. Other: No acute osseous abnormality. IMPRESSION: 1. Limited exam. No obvious acute abnormality of the chest.
[2025-02-12] MEDS: MIDAZolam 5mg/ml 2ml vial IM ONE (20:43)
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
[2025-02-12 21:42] LABS: MEAN PLATELET VOLUME 7.6 FL (7.4-10.4); RED CELL DISTRIBUTION WIDTH 15.3 % (11.5-14.5)
[2025-02-12 22:05] LABS: CREATININE 0.71 MG/DL (0.60-1.10); TOTAL CARBON DIOXIDE 28.8 MMOL/L (24-32)
[2025-02-12 22:06] LABS: eGFR > 90 ML/MIN
[2025-02-12 22:10] LABS: ETHANOL < 10 MG/DL (<10)
[2025-02-12] MEDS: MIDAZolam 5mg/ml 2ml vial IV ONE (23:32)
[2025-02-13] MEDS: OLANZapine **IM** 10 mg inj. IM ONE (00:12)
[2025-02-13] MEDS: diazepam inj 5 MG/ML inj. IV ONE (00:18)
--- NOTE | 2025-02-13 01:07 | RADIOLOGY REPORT ---
EXAM: CT CT HEAD INDICATION: ams TECHNIQUE: CT of the head without intravenous contrast. Radiation Dose : 1. Head: CT Dose: CTDI volume is 53.56 mGy. Dose-length product is 1198.32 mGy*cm The dose indicators for CT are the volume Computed Tomography (CT) Dose Index (CTDIvol) and the Dose Length Product (DLP), and are measured in units of mGy and mGy-cm, respectively. These indicators are not patient dose, but values generated from the CT scanner acquisition factors. The report includes radiation exposure data for exposures received during this examination. COMPARISON: None FINDINGS: There is no evidence of acute intracranial hemorrhage, extra-axial collection, mass effect, midline shift, herniation or hydrocephalus. The ventricles, sulci and cisterns are age appropriate. The dale-white differentiation is intact. Patchy periventricular and subcortical white matter hypoattenuation is nonspecific but may be related to small vessel ischemic disease. The visualized paranasal sinuses and mastoid air cells are clear. The surrounding soft tissues and osseous structures are unremarkable. IMPRESSION: 1. No acute intracranial abnormality. Radiation optimization: All CT scans at this facility use at least one of these dose optimization techniques: automated exposure control mA and/or kV adjustment per patient size (includes targeted exams where dose is matched to clinical indication) or iterative reconstruction.
[2025-02-13] MEDS ORDERED: magnesium sulf-water 2g/50mL 50 ML IV PRN (02:00)
[2025-02-13] MEDS ORDERED: magnesium hydroxide 30ml (MOM) UD suspension PO PRN (02:00)
[2025-02-13] MEDS ORDERED: potassium Cl 20 mEq SR tablet PO PRN ×2 (02:00)
[2025-02-13] MEDS ORDERED: metoclopramide 5 mg/ml inj IV PRN (02:00)
[2025-02-13] MEDS ORDERED: acetaminophen 650mg rectal suppository RC PRN (02:00)
[2025-02-13] MEDS ORDERED: magnesium Cl slow-release 64mg tablet PO PRN (02:00)
[2025-02-13] MEDS ORDERED: diazepam inj 5 MG/ML inj. IV PRN (02:00)
[2025-02-13] MEDS ORDERED: ondansetron/PF 4mg/2ml inj IV PRN (02:00)
[2025-02-13] MEDS ORDERED: dextrose 50%-water 50ml dispensing syringe IV PRN (02:00)
[2025-02-13] MEDS ORDERED: HYDROcodone/acetaminophen 5mg/325mg tablet PO PRN (02:00)
[2025-02-13] MEDS ORDERED: mag hydrox/Alum hydrox/simeth 30ml oral suspension PO PRN (02:00)
[2025-02-13] MEDS ORDERED: potassium Cl 40MEQ/1/2NS 520ml 520 ML IV PRN (02:00)
[2025-02-13] MEDS ORDERED: haloperidol lactate 5mg/ml inj IM PRN (02:00)
[2025-02-13] MEDS ORDERED: magnesium sulf-water 4G/100mL 100 ML IV PRN (02:00)
--- NOTE | 2025-02-13 02:22 | HISTORY AND PHYSICAL-Residence ---
History & Physical Providers to CC Resident Creating Document: JENNIFER KIMBRIANA ~ History of Present Illness Primary Medical Doctor: [facility] Reason for Admit\Complaint: Altered mental status History of Present Illness This is a 59-year-old homeless patient with a past medical history of methamphetamine use disorder, opioid use disorder, chronic leg wounds, who presented to the ER due to altered mental status and aggressivity. Patient was throwing feces at people in the streets and was brought by the police under 5150. Patient required restraints and chemical sedation, however he is still nonverbal, agitated and uncooperative. History was taken from ER staff and chart review. He was recently admitted for chronic leg wounds with associated cellulitis. There is no history of chest pain, shortness of breath, fever, vomiting or diarrhea. Allergies: Coded Allergies: Penicillins (Unverified Allergy, Unknown, 03/22/22) Home Medications Home Medications Active Reported No Home Medications (Home Med List) Each Past Medical History Past Medical History Chronic lower extremity wounds Methamphetamine use disorder Heroin use disorder Past Surgical History Surgical History Comment None reported Family History Family History: Patient reports no known family medical history. Past Social History Smoking: Cigarettes Alcohol Use: Sober Drug Use: Methamphetamine, Heroin Lives with: S/O Lives In: Homeless Occupation: unemployed ROS Constitutional: Reports: no symptoms reported Eyes: Reports: no symptoms reported ENT: Reports: no symptoms reported Respiratory: Reports: no symptoms reported Cardiovascular: Reports: no symptoms reported Gastrointestinal: Reports: no symptoms reported Genitourinary: Reports: no symptoms reported Male Genitalia: Reports: no symptoms reported Neurological: Reports: no symptoms reported Musculoskeletal: Reports: no symptoms reported Integumentary: Reports: no symptoms reported Allergic/Immunologic: Reports: no symptoms reported Hematologic/Lymphatic: Reports: no symptoms reported Endocrine: Reports: no symptoms reported Psychiatric: Reports: no symptoms reported Unable to obtain: altered mental status Exam Vitals: Vital Signs Date Time Temp Pulse Resp B/P (MAP) Pulse Ox O2 Delivery O2 Flow Rate FiO2 02/13/25 00:18 20 02/13/25 00:10 98.6 68 118/74 (89) 98 02/12/25 19:40 0 General: General: Awake and Alert, agitated, distressed, no apparent pain HEENT: Conjunctiva pink, Sclera clear, Mucus Membranes dry Neck: Supple without masses and tenderness. Resp: Unlabored. Lungs clear to auscultation bilaterally. Heart: Regular Rate and rhythm, normal S1 and S2 without murmur, rub or gallop. Abdomen: Soft, non tender, normal bowel sounds, no guarding or rebound, no organomegaly Extremities: Multiple scaly lesions in lower extremities. Extensive bilateral leg ulcers associated with erythema, edema, warmth and intralesional necrosis. No purulent discharge noted. Skin: Warm and Dry. Neuro: Awake, alert, disoriented, nonverbal, agitated, uncooperative Cranial nerve exam-normal visual field unable to access, apparent normal extraocular movements, normal facial sensations and facial movements Strength-muscle tone increased, bilateral upper and lower extremity 5/5, normal deep tendon reflexes Cerebellar function unable to access Diagnostic Data Last Recorded Lab Results: 02/12/25210902/12/252109 Advance Care Planning Advanced Care plannin - 30 Minutes (Patient is nonverbal. Full code status by default.) Additional Plan Assessment 59-year-old male homeless patient who presented to the ER for altered mental status, agitation and aggressivity. He was admitted for further evaluation and management. 1. Acute metabolic encephalopathy 2. Methamphetamine use disorder 3. Opioid use disorder Patient presents with AMS, severely agitated and aggressive. No similar symptoms reported previously and the chart. He had to be restrained and chemically sedated Possibly related to drug use WBC 8.7, procalcitonin 0.05 CXR: No acute cardiopulmonary pathology Head CT: No acute intracranial abnormality No family member reachable Plan Ordered liver panel and ammonia level Pending urinalysis and drug screen Neuro checks, aspiration precautions and fall precautions Agitation management with diazepam and haloperidol NPO until bedside swallow test Hydration with lactated ringer 500 mL q.6 hours Social service and substance use navigator consult placed 4. Chronic leg ulcers with superimposed cellulitis Patient has chronic leg ulcers, admitted multiple times for infection He is homeless, there was no dressing or wound care Physical exam reveals extensive bilateral leg ulcers associated with erythema, edema, warmth and intralesional necrosis. No purulent discharge noted No signs of sepsis, normal white count and procalcitonin Plan Started on ceftriaxone and vancomycin Ordered blood cultures and ESR Ordered bilateral leg MRI for possible associated osteomyelitis Wound care consult requested Code Status: Full code by default DVT prophylaxis: Heparin Analgesia/sedation: Morphine/Tylenol Line/tube: PIV GI prophylaxis: None Nutrition: NPO until swallow test Prognosis: Guarded Physical therapy: Ordered Disposition: Admit to ortho floor. Resident MD attestation The above note has been reviewed and supervised by a senior resident PGY2/PGY3 Patient was seen, examined and discussed with the attending physician Date of Service: Feb 13, 2025 Billing Provider: TISHA NUNEZ MD Addendum 59 year old male admitted with AMS and aggressive behavior Plan: urine toxicology MRI of the legs empiric abx with ceftriaxone and vancomycin blood cultures CCT 58 min using HIPPA compliant A/V technology JENNIFER KIM, RES Feb 13, 2025 02:22 TISHA NUNEZ MD Feb 13, 2025 21:19
[2025-02-13] MEDS ORDERED: morphine 4 MG/ML inj SYRINge IV PRN ×2 (02:25)
[2025-02-13 03:41] LABS: URINE AMPHETAMINE SCREEN POSITIVE (Neg); URINE BARBITUATE SCREEN NEGATIVE (Neg); URINE BENZODIAZEPINES SCREEN POSITIVE (Neg); URINE CANNABINOID SCREEN NEGATIVE (Neg); URINE COCAINE SCREEN NEGATIVE (Neg); URINE METHADONE SCREEN NEGATIVE (Neg); URINE OPIATE SCREEN NEGATIVE (Neg); URINE PHENCYCLIDINE SCREEN NEGATIVE (Neg)
[2025-02-13 03:53] LABS: LEUKOCYTE ESTERASE ,URINE NEGATIVE (Neg); NITRITES, URINE NEGATIVE (Neg); OCCULT BLOOD,URINE NEGATIVE (Neg)
[2025-02-13] MEDS: CefTRIAXone 2gm/D5W 50ml BAG 50 ML IV SCH (03:53)
[2025-02-13 03:59] LABS: UA COLLECTION TYPE URINAL
[2025-02-13] MEDS: ringers solution, lactated 500ml IV solution IV SCH (03:59)
[2025-02-13] MEDS: VANCOMYCIN 2GM/400ML H20 (PEG) 400 ML IV ONE ×2 (04:51)
[2025-02-13 07:00] VITALS: BP 120/58; PULSE 43; RESP 14; O2SAT 99
[2025-02-13] MEDS: folic acid 1mg/0.2ml inj IV SCH (08:00)
[2025-02-13] MEDS: K and/or MAG REPLACEMENT MC SCH (08:00)
[2025-02-13] MEDS: docusate sod 100mg capsule PO SCH (08:00)
[2025-02-13] MEDS: heparin, porcine 5000 units/ml vial SQ SCH (08:00)
[2025-02-13 08:55] VITALS: RESP 16
[2025-02-13 10:00] VITALS: BP 114/61; PULSE 91; RESP 14; TEMP 99.7; O2SAT 96
[2025-02-13] MEDS: thiamine 100mg/ml 2ml inj. IV SCH (10:12)
[2025-02-13] MEDS: ringers solution, lacted 1,000 ML IV SCH (12:18)
[2025-02-13] MEDS: vancomycin/NS 1 GM ADD-VANTAGE 250 ML IV SCH (14:25)
[2025-02-13 18:00] VITALS: BP 136/76; PULSE 98; RESP 20; TEMP 98.9; O2SAT 100
[2025-02-13 20:00] VITALS: RESP 20; O2SAT 98
[2025-02-13] MEDS ORDERED: VANCOMYCIN/H2O 1.25G/250mL PB 250 ML IV SCH (20:00)
[2025-02-13] MEDS ORDERED: VANCOmycin 1250MG/NS 250ml Bag 250 ML IV SCH (20:00)
[2025-02-13 22:00] VITALS: BP 120/66; PULSE 87; RESP 20; TEMP 98.1; O2SAT 98
[2025-02-14 06:00] VITALS: BP 124/69; PULSE 78; RESP 22; TEMP 97.4; O2SAT 98
[2025-02-14 08:55] VITALS: RESP 20; O2SAT 95
[2025-02-14 10:00] VITALS: BP 131/57; PULSE 100; RESP 16; TEMP 97.8; O2SAT 90
[2025-02-14] MEDS: VANCOMYCIN LEVEL IV ONE (10:04)
--- NOTE | 2025-02-14 10:09 | PROGRESS NOTE ---
Daily Progress Note Providers to CC Feels better today complaint of bilateral lower leg swelling, pain improved well controlled. ~ Central Line/PICC still needed: No Conde-Non Protocol Conde Indications Met/Not Met: F/C Indications Not Met Antibiotic Timeout Antibiotic Ordered?: Yes MRSA Education MRSA Education Provided to pt: Yes Subjective As above Objective Vital Signs Date Time Temp Pulse Resp B/P (MAP) Pulse Ox O2 Delivery O2 Flow Rate FiO2 02/14/25 06:00 97.4 78 22 124/69 (87) 98 Room Air 02/12/25 19:40 0 Vital signs, stable ,afebrile. Pulse Oximetry reflects adequate oxygenation. BMI is twenty-two, weight 81 kg General: well developed, well nourished. Awake , alert, and oriented x4, resting comfortably in the bed, in no acute distress . Skin: Warm, dry, no pallor, no rash or petechiae. HEENT: Atraumatic, normocephalic, EOMI, anicteric sclera B; pink conjunctiva; PERRLA, normal oropharynx, moist oral and nasal mucosa. Tympanic membrane , nose , throat clear. Neck: Trachea midline. Supple, full range of motion, no JVD, bruit , hepatojugular reflex , lymphadenopathy or masses, or other lesions Cardiac: Regular rhythm, regular rate no murmurs, rubs, or gallops. Normal S1 and S2, no S3 noticed. PMI is normal. Respiratory: Equal breath sounds bilaterally, no tachypnea; lungs clear to auscultation bilaterally, no wheezing ,rub or rales, or crackles. Chest wall is symmetric and without deformity. No signs of trauma. Chest wall is nontender. No signs of respiratory distress. Resonance is normal upon percussion bilaterally. Gastrointestinal: Abdomen symmetric, non-distended, soft, non-tender, normal bowel sounds x4 quadrant, normoactive, no hepatosplenomegaly , no masses , no bruit, no flank pain bilaterally. No voluntary guarding, rebound, or rigidity. No tenderness to percussion. No pulsatile masses. Equal femoral pulses. No Betancourt's sign or McBurney point tenderness. Back; no CVA tenderness bilaterally, no deformities. Neck and back are without deformity as well. No tenderness noted on palpation of the spinous processes. Spinous processes are midline. Cervical, thoracic, and lumbar paraspinal muscles are not tender and are without spasm. : normal external genitalia, without lesions, swelling, masses or tenderness. Musculoskeletal: Extremities, normal range of motion, non-tender, muscle strength 5/5 x 4. Negative Homans signs bilaterally on lower extremity. Distal pulses full symmetrical, no clubbing, cyanosis , edema. Locally, bilateral lower extremity dressing clean dry intact neurovascular grossly intact. Neurological: Speech is clear, alert, and oriented x 4. No motor or sensory deficit, deep tendon reflexes normal, cerebellar intact. Cranial nerves II-XII intact. Psych: Alert and or appropriate, normal affect. Vascular: Good distal pulses, which are equal x4; capillary refill less than 2 seconds. Lymphatic, no lymphadenopathy. Result Diagram: 02/12/25210902/12/252109 Problem\Assessment\Plan Assessment/Plan 59-year-old male homeless patient who presented to the ER for altered mental status, agitation and aggressivity. He was admitted for further evaluation and management. Improved and doing well today 1. Acute metabolic encephalopathy 2. Methamphetamine use disorder 3. Opioid use disorder Patient presents with AMS, severely agitated and aggressive. No similar symptoms reported previously and the chart. He had to be restrained and chemically sedated Possibly related to drug use WBC 8.7, procalcitonin 0.05 CXR: No acute cardiopulmonary pathology Head CT: No acute intracranial abnormality No family member reachable Plan Ordered liver panel and ammonia level Pending urinalysis and drug screen Neuro checks, aspiration precautions and fall precautions Agitation management with diazepam and haloperidol NPO until bedside swallow test Hydration with lactated ringer 500 mL q.6 hours Social service and substance use navigator consult placed 4. Chronic leg ulcers with superimposed cellulitis Patient has chronic leg ulcers, admitted multiple times for infection He is homeless, there was no dressing or wound care Physical exam reveals extensive bilateral leg ulcers associated with erythema, edema, warmth and intralesional necrosis. No purulent discharge noted No signs of sepsis, normal white count and procalcitonin Plan Started on ceftriaxone and vancomycin Ordered blood cultures and ESR Ordered bilateral leg MRI for possible associated osteomyelitis Wound care consult requested Code Status: Full code by default DVT prophylaxis: Heparin Analgesia/sedation: Morphine/Tylenol Line/tube: PIV GI prophylaxis: None Nutrition: NPO until swallow test Prognosis: Guarded Physical therapy: Ordered Patient is somatically medically cleared for mental health care team evaluation Sepsis Screening Reassessment Date: Feb 14, 2025 Date of Service: Feb 14, 2025 Billing Provider: KAUSHAL JAMES MD Common Visit Codes: 98264-PKBATEBPIZ INP/OBS CARE(HIGH) KAUSHAL JAMES MD Feb 14, 2025 10:09
--- NOTE | 2025-02-15 13:41 | DISCHARGE SUMMARY ---
Discharge Summary Providers to CC Patient eloped from altered department today ~ Discharge Summary Assessment Chronic lower extremity erosive dermatitis associated with cellulitis in exace rbation Metabolic encephalopathy Methamphetamine use disorder Heroin use disorder Admission Diagnosis: Altered mental status Admission Diagnosis Comment: Chronic lower extremity erosive dermatitis associated with cellulitis in exacerbation Metabolic encephalopathy Methamphetamine use disorder Heroin use disorder Hospital Course DATE OF ADMISSION: February 13, 2025 DATE OF DISCHARGE: February 14, 2025 Discharge Diagnosis\Comment: Chronic lower extremity erosive dermatitis associated with cellulitis in exacerbation Metabolic encephalopathy Methamphetamine use disorder Heroin use disorder Operations\Procedures: None Consultants: None Complications: None Condition on DC: Stable Discharge Summary: This is a 59-year-old homeless patient with a past medical history of methamphetamine use disorder, opioid use disorder, chronic leg wounds, who pre sented to the ER due to altered mental status and aggressivity. Patient was throwing feces at people in the streets and was brought by the police under 5150. Patient required restraints and chemical sedation, however he is still nonverbal, agitated and uncooperative. History was taken from ER staff and chart review. He was recently admitted for chronic leg wounds with associated cellulitis. There is no history of chest pain, shortness of breath, fever, vomiting or diarrhea. After admission patient was extensively evaluated and treated his condition improved and on February 14 by 3:00 p.m., patient eloped from ortho Department. I did not have a chance to examine the patient, security of the hospital notified, recommended to return patient to department if patient found. *Problems/Diagnosis: (1) Bilateral lower leg cellulitis Status: Acute Total Time Spent on D/C: > 30 Minutes Date of Service: Feb 15, 2025 Billing Provider: KAUSHAL JAMES MD Common Visit Codes: 29820-FGP/OBS DISCH DAY >30min KAUSHAL JAMES MD Feb 15, 2025 13:41
== END 2025-02-14 15:55 | disposition left against medical advice (07) | DRG 52 ==
LOC: ER 18:20 → ED HOLD 02-13 02:09 → ORTHO 4S 02-13 06:35
PROVIDERS: ADMIT Internal Medicine; ATTEND Family Medicine
DX: G93.41 Metabolic encephalopathy (principal); L03.115 Cellulitis of right lower limb; L03.116 Cellulitis of left lower limb; F11.10 Opioid abuse, uncomplicated; F15.10 Other stimulant abuse, uncomplicated; L30.8 Other specified dermatitis; L97.828 Non-pressure chronic ulcer of other part of left lower leg with other specified severity; L97.818 Non-pressure chronic ulcer of other part of right lower leg with other specified severity; Z59.00 Homelessness unspecified; Z88.0 Allergy status to penicillin
CPT/HCPCS: 36415; 70450; 71045; 80048; 80305; 80320; 81003; 83605; 84145; 84443; 84484; 85025; 87040; 96372; 96374; 99291; A6258; A6446; G0378; J0696; J1200; J1630; J2250; J3360; J3373; J3375; J3411; J3490; J7030; J7120

== ENCOUNTER 2025-04-30 15:09 | Emergency (ER) | payer MEDICAID ==
[~2025-04-30] VITALS: Ht 185.4 cm; Wt 80.4 kg
--- NOTE | 2025-04-30 15:30 | Physician Documentation ---
History of Present Illness ~ Chief Complaint: Wound Re-Check Stated Complaint: WOUNDS Time Seen by MD: 15:51 OK to notify your PCP?: Yes Primary Medical Doctor: [facility] Source: patient Mode of Arrival: POV Exam Limitations: no limitations HPI This is a 60-year-old male who comes in requesting clearance to rehab facility. The patient recently was released from a [facility] where he was being treated for chronic wounds of the bilateral lower extremities. The patient states the wounds are stemming from road rash two years ago and got worse due to "s tupidity". Denies history of diabetes. He is homeless and states he has not been changing his dressings. He denies fever or chills Tetanus within 5 years?: No (UNK) Medication Reconciliation Allergies: Coded Allergies: Penicillins (Unverified Allergy, Unknown, 04/30/25) Miscellaneous Medications Home Med List (No Home Medications), (Reported) Past Medical History Past Medical History: No Pertinent History Past Surgical History: orthopedic surgeries Patient History: Patient reports no known family medical history. Alcohol Use: Sober Drug Use: other Lives with: S/O Lives In: Homeless Occupation: unemployed Physical Exam Vital Signs: Temperature: 98.5, Source: Temporal, Heart Rate: 87, Respiratory Rate: 18, BP: 117/45, Pulse Oximetry: 96, Weight: 80.400 Oxygen Flow Rate: 0 Pulse Oximetry Reflects: adequate oxygenation General Appearance: alert, WD/WN, no apparent distress Extremities The dressings were taken down of the bilateral lower extremities. Once the dr essings were removed the wounds actually or well-appearing. They are dry without discharge and no significant acute appearing cellulitis. The patient does have discoloration of the bilateral lower extremities from just below the knee down however this is chronic. The patient states the wounds appears similar to when he was discharged from [facility] Progress Results/Orders Results/Orders Vital Signs 04/30/25 15:18 Temp 98.5 Pulse 87 Resp 18 B/P (MAP) 117/45 Pulse Ox 96 O2 Flow Rate 0 Medical Decision Making Additional information obtaine: N/A Findings I evaluated the patient through triage and got him back to a room take the dressings down. The dressings were discolored but the patient is states that is he was discharged from [facility] and was out in the rain when the dressings got wet. He states that is he has a open room at [facility] for he was discharged from [facility] however he did not go directly to [facility] because he was looking for his dog. The patient states that he returned to [facility] for admission however they wanted him to be medically cleared once they saw with the state of his dressings. The old dressings were taken off, the wounds were cleansed and rewrapped in his new fresh dressings. The patient will be discharged to [facility] where will he will continue wound care. Differential Dx:Considerations: Include: Abscess, Cellulitis, Dressing change, Healing wound, Other Additional Comment Chronic bilateral lower extremity wounds. Infected chronic wounds. Stasis ulcers. This has been vascular insufficiency. Departure Disposition: HOME / SELF CARE / HOMELESS Impression: Primary Impression: Chronic wound of extremity Condition: Stable Discharge Instructions: Wound Care, Adult Additional Instructions: Ian Galo was medically evaluated and medically cleared for [facility]. Referrals: NO PRIMARY CARE PROVIDER (PCP) Signature Scribe Signature: No scribe Attestation: The note accurately reflects work and decisions made by me.Tania PALAFOX 04/30/25 16:07 TANIA SIMON Apr 30, 2025 15:30
[2025-04-30 16:34] VITALS: BP 111/62; PULSE 66; RESP 16; O2SAT 95
[2025-04-30 16:45] VITALS: TEMP 98.1
== END 2025-04-30 16:35 | disposition home or self-care (01) ==
LOC: ER 15:09
DX: S80.922D Unspecified superficial injury of left lower leg, subsequent encounter (principal); S80.921D Unspecified superficial injury of right lower leg, subsequent encounter; Z88.0 Allergy status to penicillin; Z59.00 Homelessness unspecified; Z56.0 Unemployment, unspecified; Z98.890 Other specified postprocedural states; X58.XXXD Exposure to other specified factors, subsequent encounter
CPT/HCPCS: 99282; A6223; A6449